=== PATIENT | female | born 1980 | race Hispanic/Latino ===

== ENCOUNTER 2016-05-05 15:54 | Emergency (ER) | payer OTHER ==
[2016-05-05 17:30] VITALS: BP 127/77
--- NOTE | 2016-05-05 17:34 | Emergency Department Report ---
ED ENT HPI - General Chief complaint: Dental/Oral Stated complaint: ABSCESS TOOTH/FACE SWOLLEN/EAR ACHE Time Seen by Provider: 05/05/16 17:25 Source: patient Mode of arrival: Ambulatory Limitations: No Limitations - History of Present Illness Initial comments: PT c/o toothache. PT states a year ago, she had a broken tooth but it never bothered her. PT states she thought the tooth was fine but she chipped it more but eating very hard pork rinds over the weekend. PT states she had pain after she spit out a piece of tooth and the pain has gradually worsened. PT states she tried taking a few left over Amoxils from a year ago but no improvement. PT states she woke up this am with facial swelling and subjective fever. PT states she took OTC motrin for this. MD complaint: tooth pain Onset/Timin -: Gradual, days(s) Location: tooth # (2) 1 - decay Severity: severe Severity scale (0 -10): 10 Quality: stabbing, aching Consistency: constant Worsens with: none Context- Dental: history of dental caries, poor dental care Associated Symptoms: fever, toothache. denies: gum swelling - Related Data Previous Rx's Medication Instructions Recorded Last Taken Type Amoxicillin 500 mg PO BID #20 capsule 05/05/16 Unknown Rx Ibuprofen [Motrin] 600 mg PO Q8H PRN #15 tablet 05/05/16 Unknown Rx traMADol [Ultram] 50 mg PO Q6HR PRN #12 tablet 05/05/16 Unknown Rx Allergies Allergy/AdvReac Type Severity Reaction Status Date / Time No Known Allergies Allergy Unverified 05/05/16 17:28 ED Dental HPI - General Stated complaint: ABSCESS TOOTH/FACE SWOLLEN/EAR ACHE Time Seen by Provider: 05/05/16 17:25 - Related Data Previous Rx's Medication Instructions Recorded Last Taken Type Amoxicillin 500 mg PO BID #20 capsule 05/05/16 Unknown Rx Ibuprofen [Motrin] 600 mg PO Q8H PRN #15 tablet 05/05/16 Unknown Rx traMADol [Ultram] 50 mg PO Q6HR PRN #12 tablet 05/05/16 Unknown Rx Allergies Allergy/AdvReac Type Severity Reaction Status Date / Time No Known Allergies Allergy Unverified 05/05/16 17:28 ED Review of Systems ROS: Stated complaint: ABSCESS TOOTH/FACE SWOLLEN/EAR ACHE Other details as noted in HPI Comment: All other systems reviewed and negative Constitutional: fever ENT: ear pain (R ) Respiratory: no symptoms reported Neurological: headache ED Past Medical Hx - Medications Home Medications: Home Medications Medication Instructions Recorded Confirmed Last Taken Type Amoxicillin 500 mg PO BID #20 capsule 05/05/16 Unknown Rx Ibuprofen [Motrin] 600 mg PO Q8H PRN #15 tablet 05/05/16 Unknown Rx traMADol [Ultram] 50 mg PO Q6HR PRN #12 tablet 05/05/16 Unknown Rx ED Physical Exam - General Limitations: No Limitations General appearance: alert, in no apparent distress - Head Head exam: Present: atraumatic, normocephalic - Eye Eye exam: Present: normal appearance. Absent: conjunctival injection - ENT ENT exam: Present: normal orophraynx, mucous membranes moist, other (R TM WNL ) - Expanded ENT Exam Expanded TM/Canal exam: Cerumen Impaction: Left TM Mouth exam: Absent: muffled voice Teeth exam: Present: dental caries, dental tenderness # (2, no abscess seen, however, tooth is decayed to gum line ) Throat exam: Positive: normal inspection - Neck Neck exam: Present: normal inspection. Absent: tenderness, lymphadenopathy - Respiratory Respiratory exam: Present: normal lung sounds bilaterally. Absent: respiratory distress, wheezes - Cardiovascular Cardiovascular Exam: Present: regular rate, normal rhythm - Extremities Exam Extremities exam: Present: normal inspection, full ROM - Back Exam Back exam: Present: normal inspection, full ROM. Absent: tenderness - Neurological Exam Neurological exam: Present: alert, oriented X3 - Psychiatric Psychiatric exam: Present: normal affect, normal mood - Skin Skin exam: Present: warm, dry, intact, normal color ED Course Vital Signs 05/05/16 17:28 Temperature 98.1 F Pulse Rate 88 Respiratory 17 Rate Blood Pressure 127/77 O2 Sat by Pulse 100 Oximetry - Reevaluation(s) Reevaluation #1: 05/05/16 17:34 PT aware of dx and plan of care. PT aware she must follow up with a Dentist. - Pulse Oximetry Interpretation Digit-Finger Initial Pulse Oximetry Readin Actions Taken: none ED Medical Decision Making - Differential Diagnosis abscess, decay Critical care attestation.: If time is entered above; I have spent that time in minutes in the direct care of this critically ill patient, excluding procedure time. ED Disposition Clinical Impression: Toothache, Dental decay, Otalgia of right ear Disposition: DISCHARGED TO HOME OR SELFCARE Is pt being admited?: No Does the pt Need Aspirin: No Condition: Stable Instructions: Dental Abscess (ED), Dental Caries (ED), Toothache (ED) Additional Instructions: Follow up with a Dentist next week Finish all antibiotics No driving or ETOH after taking Ultram Prescriptions: Amoxicillin 500 mg PO BID #20 capsule Ibuprofen [Motrin] 600 mg PO Q8H PRN #15 tablet PRN Reason: Pain traMADol [Ultram] 50 mg PO Q6HR PRN #12 tablet PRN Reason: Pain Referrals: [facility] [Outside] - 3-5 Days Forms: Work/School Release Form(ED) Time of Disposition: 17:36
== END 2016-05-05 18:10 | disposition home or self-care (01) ==
LOC: ED 15:54
DX: K02.9 Dental caries, unspecified (principal); K08.89 Other specified disorders of teeth and supporting structures; H92.01 Otalgia, right ear
CPT/HCPCS: 99282

== ENCOUNTER 2017-11-28 12:39 | Inpatient (IN) | payer MEDICAID, OTHER ==
[2017-11-28] MEDS ORDERED: DULCOLAX PR PRN (12:48)
[2017-11-28] MEDS ORDERED: ZOFRAN ODT PO PRN (12:48)
[2017-11-28] MEDS ORDERED: MOTRIN PO PRN (12:48)
[2017-11-28] MEDS ORDERED: REQUIP PO PRN (12:48)
[2017-11-28] MEDS ORDERED: ATIVAN IV PRN (12:48)
[2017-11-28] MEDS ORDERED: ROBAXIN PO PRN (12:48)
[2017-11-28] MEDS ORDERED: VISTARIL PO PRN (12:48)
[2017-11-28] MEDS ORDERED: IMODIUM PO PRN (12:48)
[2017-11-28] MEDS ORDERED: BENTYL PO PRN (12:48)
[2017-11-28] MEDS ORDERED: VISTARIL IM PRN (12:48)
[2017-11-28] MEDS ORDERED: ALUM-MAG HYDROX-SIMETH 200-200-20MG/5ML PO PRN (12:48)
[2017-11-28] MEDS ORDERED: SENOKOT PO PRN (12:48)
[2017-11-28] MEDS ORDERED: ZOFRAN IV PRN ×2 (12:48→19:41)
[2017-11-28] MEDS ORDERED: CATAPRES PO PRN (12:48)
[2017-11-28] MEDS ORDERED: TYLENOL PO PRN ×2 (12:48→19:41)
[2017-11-28 13:55] LABS: Hemoglobin 15.2 gm/dl (10.1-14.3); Mean Corpuscular HGB Conc 34 % (30-34); Mean Corpuscular Hemoglobin 32 pg (28-32); Mean Corpuscular Volume 93 fl (79-97); Platelet Count 256 K/mm3 (140-440); Red Blood Count 4.83 M/mm3 (3.65-5.03); Red Cell Distribution Width 12.2 % (13.2-15.2)
[2017-11-28 14:03] LABS: INR 0.95 (0.87-1.13)
[2017-11-28 14:13] LABS: Alanine Aminotransferase 9 units/L (7-56); Albumin 4.1 g/dL (3.9-5); BUN/Creatinine Ratio 23; Blood Urea Nitrogen 14 mg/dL (7-17); Calcium 9.4 mg/dL (8.4-10.2); Hemolysis Index 14
[2017-11-28] MEDS: LIBRIUM PO SCH ×3 (14:36→22:26)
[2017-11-28] MEDS ORDERED: VITAMIN B-1 100 MG, FOLVITE 1 MG, INFUVITE 10 ML in LACTATED RINGERS 1,000 ML IV ONE (15:20)
[2017-11-28] MEDS: SUBOXONE 2 MG-0.5 MG SL SCH ×2 (15:25→22:51)
--- NOTE | 2017-11-28 19:02 | History and Physical Report ---
History of Present Illness Date of examination: 11/28/17 Date of admission: 11/28/17 13:24 Chief complaint: CC: Methadone dependence for 2 years History of present illness: History of present illness 37-year-old white female comes in for help with methadone dependence. Patient was doing crushed oxycodone 30 mg each and Dilaudid 8 mg 2-4 times a day depending on the availability 10 years ago. Patient did oxycodone and Dilaudid for 2 years and was drug free for 8 years. Relapsed about 22 months ago and was on methadone 90 mg once a day. Patient wanted to be off methadone and taper down to 15 mg once a day until 2 weeks ago. Relapsed because she was feeling bad and took oxycodone 30 mg couple of times. The methadone clinic increased her methadone to 30 mg and then 40 mg at which point she wanted help getting off methadone. Hence admission to medical stabilization unit for Suboxone treatment. Patient feels nauseous and anxious and slightly agitated. No fever or chills. No significant past medical history. Past History Past Medical History: No medical history Past Surgical History: Other (inguinal hernia surgery and abdominal wall hernia surgery.) Social history: no significant social history, lives with family, full code, other (surprisingly patient does not smoke or take alcohol) Family history: no significant family history Medications and Allergies Allergies Allergy/AdvReac Type Severity Reaction Status Date / Time No Known Allergies Allergy Unverified 05/05/16 17:28 Home Medications Medication Instructions Recorded Confirmed Last Taken Type Amoxicillin 500 mg PO BID #20 capsule 05/05/16 Unknown Rx Ibuprofen [Motrin] 600 mg PO Q8H PRN #15 tablet 05/05/16 Unknown Rx traMADol [Ultram] 50 mg PO Q6HR PRN #12 tablet 05/05/16 Unknown Rx Active Meds: Active Medications Acetaminophen (Tylenol) 500 mg PO Q4H PRN PRN Reason: Temp > 100.4 Al Hydrox/Mg Hydrox/Simethicone (Alum-Mag Hydrox-Simeth [id number]/5ml) 30 ml PO Q6H PRN PRN Reason: Dyspepsia Bisacodyl (Dulcolax) 10 mg MS QDAY PRN PRN Reason: Bowel Movement Buprenorphine HCl (Suboxone 2 Mg-0.5 Mg) 2 each SL Q8HR [facility] Stop: 11/29/17 06:01 Last Admin: 11/28/17 15:25 Dose: 2 each Buprenorphine HCl (Suboxone 2 Mg-0.5 Mg) 1 each SL Q8HR [facility] Stop: 11/29/17 22:01 Buprenorphine HCl (Suboxone 2 Mg-0.5 Mg) 1 each SL Q12HR [facility] Stop: 11/30/17 22:01 Chlordiazepoxide HCl (Librium) 25 mg PO Q6H PRN PRN Reason: Moderate/Severe Anxiety Chlordiazepoxide HCl (Librium) 25 mg PO Q4HR [facility] Stop: 11/29/17 10:01 Last Admin: 11/28/17 17:26 Dose: 25 mg Clonidine HCl (Catapres) 0.1 mg PO Q2H PRN PRN Reason: Hot/Cold Sweats or Anxiety Dicyclomine HCl (Bentyl) 20 mg PO Q6H PRN PRN Reason: Abdominal Discomfort Folic Acid (Folvite) 1 mg PO QDAY [facility] Hydroxyzine HCl (Vistaril) 50 mg IM Q6H PRN PRN Reason: Breakthrough Anxiety Hydroxyzine Pamoate (Vistaril) 50 mg PO Q6H PRN PRN Reason: Anxiety Mild Sodium Chloride (Nacl 0.9% 1000 Ml) 1,000 mls @ 75 mls/hr IV DIRECT [facility] Thiamine HCl 100 mg/ Folic Acid 1 mg/ Multivitamins/Minerals 10 ml/ Lactated Ringer's 1,011.2 mls @ 150 mls/hr IV ONCE ONE Stop: 11/28/17 22:04 Last Admin: 11/28/17 15:37 Dose: 150 mls/hr Ibuprofen (Motrin) 600 mg PO Q8H PRN PRN Reason: Pain, Mild (1-3) Loperamide HCl (Imodium) 2 mg PO Q8H PRN PRN Reason: Diarrhea Lorazepam (Ativan) 2 mg IV PRN PRN PRN Reason: Seizures Methocarbamol (Robaxin) 750 mg PO Q6H PRN PRN Reason: Muscle aches Multivitamins (Theragran Tab) 1 each PO QDAY [facility] Ondansetron HCl (Zofran) 4 mg IV Q6H PRN PRN Reason: Moderat/Severe Nausea/Vomiting Ondansetron HCl (Zofran Odt) 4 mg PO Q6H PRN PRN Reason: Mild / Nausea And Vomiting Ropinirole HCl (Requip) 0.5 mg PO Q12H PRN PRN Reason: Restless legs Senna (Senokot) 17.2 mg PO QHS PRN PRN Reason: Constipation Thiamine HCl (Vitamin B-1) 100 mg PO QDAY [facility] Trazodone HCl (Desyrel) 50 mg PO QHS [facility] Review of Systems All systems: negative Constitutional: anorexia, fatigue, malaise, chronic headaches, poor appetite, no weight loss, no weight gain, no fever, no chills, no night sweats Ears, nose, mouth and throat: no bleeding gums, no dental pain, no mouth pain, no dysphagia, no hoarseness, no sore throat Breasts: deferred Cardiovascular: palpitations, no chest pain, no orthopnea, no rapid/irregular heart beat, no edema, no syncope, no lightheadedness, no shortness of breath Respiratory: no cough, no cough with sputum, no excessive sputum, no hemoptysis , no shortness of breath, no dyspnea on exertion Gastrointestinal: nausea, no abdominal pain, no vomiting, no diarrhea, no constipation, no change in bowel habits, no hematemesis, no coffee ground emesis Genitourinary Female: no menorrhagia, no dysuria, no urinary frequency, no urgency Menstruation: currently menstrual Rectal: no pain Musculoskeletal: no neck stiffness, no neck pain, no shooting arm pain, no arm numbness/tingling, no low back pain, no shooting leg pain, no leg numbness/ tingling, no redness of joints Integumentary: no rash, no pruritis, no redness, no sores, no wounds, no jaundice, no boils, no blisters Neurological: no seizures, no syncope Psychiatric: anxiety, insomnia, change in appetite, depression, anxiety attacks , no memory loss, no change in sleep habits, no sleep disturbances, no suicidal ideation, no disorientation, no hallucinations Endocrine: no cold intolerance, no heat intolerance, no polyphagia, no excessive thirst, no polydipsia, no polyuria, no nocturia, no excessive sweating , no flushing, no weight change Hematologic/Lymphatic: no easy bruising, no easy bleeding Allergic/Immunologic: no urticaria, no allergic rhinitis, no wheezing Exam - Constitutional Vitals: Temp Pulse Resp BP Pulse Ox 98.2 F 64 18 111/81 98 11/28/17 15:29 11/28/17 15:29 11/28/17 15:29 11/28/17 15:29 11/28/17 15:29 General appearance: Present: no acute distress, well-nourished - EENT Eyes: Present: PERRL ENT: hearing intact, clear oral mucosa - Neck Neck: Present: supple, normal ROM - Respiratory Respiratory effort: normal Respiratory: bilateral: CTA - Cardiovascular Heart rate: 76 Rhythm: regular Heart Sounds: Present: S1 & S2. Absent: rub, click - Extremities Extremities: no ischemia, pulses intact, pulses symmetrical, No edema Peripheral Pulses: within normal limits - Abdominal General gastrointestinal: Present: soft, non-tender, non-distended, normal bowel sounds Female genitourinary: Present: normal - Rectal Rectal Exam: deferred - Integumentary Integumentary: Present: clear, warm, dry - Musculoskeletal Musculoskeletal: gait normal, strength equal bilaterally - Psychiatric Psychiatric: appropriate mood/affect, intact judgment & insight - Neurologic Neurologic: CNII-XII intact, moves all extremities - Allied Health Allied health notes reviewed: nursing, case management Results - Labs CBC & Chem 7: 11/28/17 13:33 11/28/17 13:33 Labs: Laboratory Last Values WBC 9.3 K/mm3 (4.5-11.0) 11/28/17 13:33 RBC 4.83 M/mm3 (3.65-5.03) 11/28/17 13:33 Hgb 15.2 gm/dl (10.1-14.3) H 11/28/17 13:33 Hct 45.0 % (30.3-42.9) H 11/28/17 13:33 MCV 93 fl (79-97) 11/28/17 13:33 MCH 32 pg (28-32) 11/28/17 13:33 MCHC 34 % (30-34) 11/28/17 13:33 RDW 12.2 % (13.2-15.2) L 11/28/17 13:33 Plt Count 256 K/mm3 (140-440) 11/28/17 13:33 PT 13.2 Sec. (12.2-14.9) 11/28/17 13:33 INR 0.95 (0.87-1.13) 11/28/17 13:33 Sodium 139 mmol/L (137-145) 11/28/17 13:33 Potassium 4.2 mmol/L (3.6-5.0) 11/28/17 13:33 Chloride 100.4 mmol/L (98-107) 11/28/17 13:33 Carbon Dioxide 27 mmol/L (22-30) 11/28/17 13:33 Anion Gap 16 mmol/L 11/28/17 13:33 BUN 14 mg/dL (7-17) 11/28/17 13:33 Creatinine 0.6 mg/dL (0.7-1.2) L 11/28/17 13:33 Estimated GFR > 60 ml/min 11/28/17 13:33 BUN/Creatinine Ratio 23 % 11/28/17 13:33 Glucose 88 mg/dL (65-100) 11/28/17 13:33 Calcium 9.4 mg/dL (8.4-10.2) 11/28/17 13:33 Total Bilirubin 0.60 mg/dL (0.1-1.2) 11/28/17 13:33 AST 16 units/L (5-40) 11/28/17 13:33 ALT 9 units/L (7-56) 11/28/17 13:33 Alkaline Phosphatase 69 units/L (35-129) 11/28/17 13:33 Total Protein 6.5 g/dL (6.3-8.2) 11/28/17 13:33 Albumin 4.1 g/dL (3.9-5) 11/28/17 13:33 Albumin/Globulin Ratio 1.7 % 11/28/17 13:33 Amylase 32 units/L (27-131) 11/28/17 13:33 Lipase 12 units/L (13-60) L 11/28/17 13:33 HCG, Qual Negative (Negative) 11/28/17 13:33 Plasma/Serum Alcohol < 0.01 % (0-0.07) 11/28/17 13:33 Assessment and Plan Advance Directives: Yes (full code) VTE prophylaxis?: Chemical Plan of care discussed with patient/family: Yes
[2017-11-28] MEDS ORDERED: FIORICET PO PRN (19:37)
[2017-11-28] MEDS ORDERED: SODIUM CHLORIDE FLUSH SYRINGE 10 ML IV PRN (19:41)
[2017-11-28] MEDS ORDERED: REGLAN IV PRN (19:41)
[2017-11-28 21:42] LABS: Amorphous Crystals,Urine 1+; Bacteria,Urine 1+ /HPF (Negative); Bilirubin,Urine NEG (Negative); Blood,Urine NEG (Negative); Color,Urine Amber (Yellow); Mucus,Urine FEW /HPF
[2017-11-28 22:01] LABS: Amphetamine Screen,Urine PRESUMPTIVE NEGATIVE; Cocaine Screen,Urine PRESUMPTIVE NEGATIVE; Methadone Screen,Urine PRESUMPTIVE NEGATIVE; Opiate Screen,Urine PRESUMPTIVE NEGATIVE
[2017-11-28 22:19] LABS: Benzodiazepines Screen,Urine PRESUMPTIVE POSITIVE; Cannabinoid Screen,Urine PRESUMPTIVE POSITIVE
[2017-11-28] MEDS: PEPCID PO SCH (22:26)
[2017-11-28] MEDS: DESYREL PO SCH (22:26)
[2017-11-28] MEDS: NACL 0.9% 1000 ML 1,000 ML IV SCH (22:29)
[2017-11-29 05:44] LABS: Basophils % (Auto) 0.3 % (0.0-1.8); Eosinophils # (Auto) 0.1 K/mm3 (0.0-0.4); Hematocrit 39.7 % (30.3-42.9); Hemoglobin 13.4 gm/dl (10.1-14.3); Lymphocytes % (Auto) 42.4 % (13.4-35.0); Mean Corpuscular HGB Conc 34 % (30-34); Mean Corpuscular Hemoglobin 32 pg (28-32); Mean Corpuscular Volume 93 fl (79-97); Monocytes # (Auto) 0.4 K/mm3 (0.0-0.8); Monocytes % (Auto) 6.1 % (0.0-7.3); Platelet Count 209 K/mm3 (140-440); Red Blood Count 4.25 M/mm3 (3.65-5.03); Red Cell Distribution Width 12.1 % (13.2-15.2)
[2017-11-29 08:10] LABS: Alanine Aminotransferase 7 units/L (7-56); Albumin 3.6 g/dL (3.9-5); BUN/Creatinine Ratio 22; Blood Urea Nitrogen 11 mg/dL (7-17); Calcium 8.2 mg/dL (8.4-10.2); Hemolysis Index 8
[2017-11-29] MEDS: VITAMIN B-1 PO SCH (09:21)
[2017-11-29] MEDS: PEPCID PO SCH ×2 (09:21→22:16)
[2017-11-29] MEDS: FOLVITE PO SCH (09:21)
[2017-11-29] MEDS: THERAGRAN Tab PO SCH (09:21)
[2017-11-29] MEDS: LIBRIUM PO SCH ×2 (09:22→20:39)
[2017-11-29] MEDS: SODIUM CHLORIDE FLUSH SYRINGE 10 ML IV SCH ×3 (09:22→22:17)
[2017-11-29] MEDS ORDERED: LIBRIUM PO PRN (12:58)
[2017-11-29] MEDS: SUBOXONE 2 MG-0.5 MG SL SCH ×4 (13:41→22:16)
--- NOTE | 2017-11-29 16:08 | Progress Note ---
Assessment and Plan Assessment and plan: Patient is a 37 yo woman with a history of Methadone Dependence. Patient was doing crushed oxycodone 30 mg each and Dilaudid 8 mg 2-4 times a day depending on the availability 10 years ago. Patient did oxycodone and Dilaudid for 2 years and was drug free for 8 years. Relapsed about 22 months ago and was on methadone 90 mg once a day. Patient wanted to be off methadone and taper down to 15 mg once a day until 2 weeks ago. Relapsed because she was feeling bad and took oxycodone 30 mg couple of times. The methadone clinic increased her methadone to 30 mg and then 40 mg at which point she wanted help getting off methadone. Hence admission to medical stabilization unit for Suboxone treatment. Patient feels nauseous and anxious and slightly agitated. No fever or chills. No significant past medical history. Methadone dependence and withdrawal Patient initiated on Suboxone taper option 1. Patient to be given Suboxone 4 mg /1 mg every 8 hours for 3 doses then 2 mg/0.5 mg every 8 hours for 3 doses and on the third day 2 mg/0.5 mg sublingual every 12 hours for 2 doses. IV fluids including banana bag, Patient also to be given Librium methocarbamol dicyclomine ropinirole hydroxyzine. History Interval history: Patient was seen and examined. Follow-up on current diagnosis of Methadone stabilization. Overnight uneventful. Patient denies any chest pain, shortness breath, nausea/vomiting or severe headaches. Imaging, nursing note, chart, labs and old chart reviewed. Discussed with patient Hospitalist Physical - Physical exam Narrative exam: GEN: WDWN, NAD, Awake, Alert, Orientated x 3 HEENT: NCAT, EOMI, PERRL, OP Clear NECK: supple, no adenopathy, no thyromegaly, no JVD CVS/HEART: RRR, normal S1S2, pulses present bilaterally CHEST/LUNGS: CTA B, Symmetrical chest expansion, good air entry bilaterally GI/Abdomen: soft, NTND, good bowel sounds, no guarding or rebound /Bladder: no suprapubic tenderness, no CVA or paraspinal tenderness EXT/Skin: no c/c/e, no obvious rash MSK: FROM x 4 Neuro: CN 2-12 grossly intact, no new focal deficits Psych: calm - Constitutional Vitals: Temp Pulse Resp BP Pulse Ox 97.7 F 63 18 96/62 97 11/29/17 12:22 11/29/17 12:22 11/29/17 12:22 11/29/17 12:22 11/29/17 12:22 General appearance: Present: no acute distress, well-nourished Results - Labs CBC & Chem 7: 11/29/17 04:55 11/29/17 04:55 Labs: Laboratory Last Values WBC 7.0 K/mm3 (4.5-11.0) 11/29/17 04:55 RBC 4.25 M/mm3 (3.65-5.03) 11/29/17 04:55 Hgb 13.4 gm/dl (10.1-14.3) 11/29/17 04:55 Hct 39.7 % (30.3-42.9) 11/29/17 04:55 MCV 93 fl (79-97) 11/29/17 04:55 MCH 32 pg (28-32) 11/29/17 04:55 MCHC 34 % (30-34) 11/29/17 04:55 RDW 12.1 % (13.2-15.2) L 11/29/17 04:55 Plt Count 209 K/mm3 (140-440) 11/29/17 04:55 Lymph % (Auto) 42.4 % (13.4-35.0) H 11/29/17 04:55 Butts % (Auto) 6.1 % (0.0-7.3) 11/29/17 04:55 Eos % (Auto) 2.0 % (0.0-4.3) 11/29/17 04:55 Baso % (Auto) 0.3 % (0.0-1.8) 11/29/17 04:55 Lymph # 3.0 K/mm3 (1.2-5.4) 11/29/17 04:55 Butts # 0.4 K/mm3 (0.0-0.8) 11/29/17 04:55 Eos # 0.1 K/mm3 (0.0-0.4) 11/29/17 04:55 Baso # 0.0 K/mm3 (0.0-0.1) 11/29/17 04:55 Seg Neutrophils % 49.2 % (40.0-70.0) 11/29/17 04:55 Seg Neutrophils # 3.5 K/mm3 (1.8-7.7) 11/29/17 04:55 PT 13.2 Sec. (12.2-14.9) 11/28/17 13:33 INR 0.95 (0.87-1.13) 11/28/17 13:33 Sodium 140 mmol/L (137-145) 11/29/17 04:55 Potassium 3.8 mmol/L (3.6-5.0) 11/29/17 04:55 Chloride 104.9 mmol/L (98-107) 11/29/17 04:55 Carbon Dioxide 23 mmol/L (22-30) 11/29/17 04:55 Anion Gap 16 mmol/L 11/29/17 04:55 BUN 11 mg/dL (7-17) 11/29/17 04:55 Creatinine 0.5 mg/dL (0.7-1.2) L 11/29/17 04:55 Estimated GFR > 60 ml/min 11/29/17 04:55 BUN/Creatinine Ratio 22 % 11/29/17 04:55 Glucose 90 mg/dL (65-100) 11/29/17 04:55 Calcium 8.2 mg/dL (8.4-10.2) L 11/29/17 04:55 Total Bilirubin 0.50 mg/dL (0.1-1.2) 11/29/17 04:55 AST 12 units/L (5-40) 11/29/17 04:55 ALT 7 units/L (7-56) 11/29/17 04:55 Alkaline Phosphatase 57 units/L (35-129) 11/29/17 04:55 Total Protein 5.1 g/dL (6.3-8.2) L D 11/29/17 04:55 Albumin 3.6 g/dL (3.9-5) L 11/29/17 04:55 Albumin/Globulin Ratio 2.4 % 11/29/17 04:55 Amylase 32 units/L (27-131) 11/28/17 13:33 Lipase 12 units/L (13-60) L 11/28/17 13:33 HCG, Qual Negative (Negative) 11/28/17 13:33 Urine Color Breonna (Yellow) 11/28/17 21:03 Urine Turbidity Cloudy (Clear) 11/28/17 21:03 Urine pH 8.0 (5.0-7.0) H 11/28/17 21:03 Ur Specific [place] 1.016 (1.003-1.030) 11/28/17 21:03 Urine Protein 30 mg/dl mg/dL (Negative) 11/28/17 21:03 Urine Glucose (UA) Neg mg/dL (Negative) 11/28/17 21:03 Urine Ketones 20 mg/dL (Negative) 11/28/17 21:03 Urine Blood Neg (Negative) 11/28/17 21:03 Urine Nitrite Neg (Negative) 11/28/17 21:03 Urine Bilirubin Neg (Negative) 11/28/17 21:03 Urine Urobilinogen 2.0 mg/dL (<2.0) 11/28/17 21:03 Ur Leukocyte Esterase Tr (Negative) 11/28/17 21:03 Urine WBC (Auto) 8.0 /HPF (0.0-6.0) H 11/28/17 21:03 Urine RBC (Auto) 1.0 /HPF (0.0-6.0) 11/28/17 21:03 U Epithel Cells (Auto) 6.0 /HPF (0-13.0) 11/28/17 21:03 Urine Bacteria (Auto) 1+ /HPF (Negative) 11/28/17 21:03 Amorphous Crystals 1+ 11/28/17 21:03 Urine Mucus Few /HPF 11/28/17 21:03 Urine Opiates Screen Presumptive negative 11/28/17 21:03 Urine Methadone Screen Presumptive negative 11/28/17 21:03 Ur Barbiturates Screen Presumptive negative 11/28/17 21:03 Ur Phencyclidine Scrn Presumptive negative 11/28/17 21:03 Ur Amphetamines Screen Presumptive negative 11/28/17 21:03 U Benzodiazepines Scrn Presumptive positive 11/28/17 21:03 Urine Cocaine Screen Presumptive negative 11/28/17 21:03 U Marijuana (THC) Screen Presumptive positive 11/28/17 21:03 Drugs of Abuse Note Disclamer 11/28/17 21:03 Plasma/Serum Alcohol < 0.01 % (0-0.07) 11/28/17 13:33
[2017-11-29] MEDS: NACL 0.9% 1000 ML 1,000 ML IV SCH (17:55)
[2017-11-29 19:03] LABS: Amphetamine Screen,Urine PRESUMPTIVE NEGATIVE; Cocaine Screen,Urine PRESUMPTIVE NEGATIVE; Opiate Screen,Urine PRESUMPTIVE NEGATIVE
[2017-11-29 19:19] LABS: Benzodiazepines Screen,Urine PRESUMPTIVE POSITIVE; Cannabinoid Screen,Urine PRESUMPTIVE POSITIVE; Methadone Screen,Urine PRESUMPTIVE POSITIVE
[2017-11-29] MEDS: DESYREL PO SCH (22:16)
[2017-11-30] MEDS: FOLVITE PO SCH (09:51)
[2017-11-30] MEDS: PEPCID PO SCH ×2 (09:51→21:43)
[2017-11-30] MEDS: THERAGRAN Tab PO SCH (09:51)
[2017-11-30] MEDS: VITAMIN B-1 PO SCH (09:51)
[2017-11-30] MEDS: SODIUM CHLORIDE FLUSH SYRINGE 10 ML IV SCH ×2 (09:52→21:43)
--- NOTE | 2017-11-30 14:13 | Progress Note ---
Assessment and Plan Assessment and plan: Patient is a 37 yo woman with a history of Methadone Dependence. Patient was doing crushed oxycodone 30 mg each and Dilaudid 8 mg 2-4 times a day depending on the availability 10 years ago. Patient did oxycodone and Dilaudid for 2 years and was drug free for 8 years. Relapsed about 22 months ago and was on methadone 90 mg once a day. Patient wanted to be off methadone and taper down to 15 mg once a day until 2 weeks ago. Relapsed because she was feeling bad and took oxycodone 30 mg couple of times. The methadone clinic increased her methadone to 30 mg and then 40 mg at which point she wanted help getting off methadone. Hence admission to medical stabilization unit for Suboxone treatment. Patient feels nauseous and anxious and slightly agitated. No fever or chills. No significant past medical history. Methadone dependence and withdrawal Patient initiated on Suboxone taper option 1. Patient to be given Suboxone 4 mg /1 mg every 8 hours for 3 doses then 2 mg/0.5 mg every 8 hours for 3 doses and on the third day 2 mg/0.5 mg sublingual every 12 hours for 2 doses. IV fluids including banana bag, Patient also to be given Librium methocarbamol dicyclomine ropinirole hydroxyzine. History Interval history: Patient was seen and examined. Follow-up on current diagnosis of Methadone stabilization. Overnight uneventful. Patient denies any chest pain, shortness breath, nausea/vomiting or severe headaches. Imaging, nursing note, chart, labs and old chart reviewed. Discussed with patient Hospitalist Physical - Physical exam Narrative exam: GEN: WDWN, NAD, Awake, Alert, Orientated x 3 HEENT: NCAT, EOMI, PERRL, OP Clear NECK: supple, no adenopathy, no thyromegaly, no JVD CVS/HEART: RRR, normal S1S2, pulses present bilaterally CHEST/LUNGS: CTA B, Symmetrical chest expansion, good air entry bilaterally GI/Abdomen: soft, NTND, good bowel sounds, no guarding or rebound /Bladder: no suprapubic tenderness, no CVA or paraspinal tenderness EXT/Skin: no c/c/e, no obvious rash MSK: FROM x 4 Neuro: CN 2-12 grossly intact, no new focal deficits Psych: calm - Constitutional Vitals: Temp Pulse Resp BP Pulse Ox 98.3 F 75 18 95/55 94 11/30/17 08:13 11/30/17 08:13 11/30/17 08:13 11/30/17 08:13 11/30/17 08:13 General appearance: Present: no acute distress, well-nourished Results - Labs CBC & Chem 7: 11/29/17 04:55 11/29/17 04:55 Labs: Laboratory Last Values WBC 7.0 K/mm3 (4.5-11.0) 11/29/17 04:55 RBC 4.25 M/mm3 (3.65-5.03) 11/29/17 04:55 Hgb 13.4 gm/dl (10.1-14.3) 11/29/17 04:55 Hct 39.7 % (30.3-42.9) 11/29/17 04:55 MCV 93 fl (79-97) 11/29/17 04:55 MCH 32 pg (28-32) 11/29/17 04:55 MCHC 34 % (30-34) 11/29/17 04:55 RDW 12.1 % (13.2-15.2) L 11/29/17 04:55 Plt Count 209 K/mm3 (140-440) 11/29/17 04:55 Lymph % (Auto) 42.4 % (13.4-35.0) H 11/29/17 04:55 [place] % (Auto) 6.1 % (0.0-7.3) 11/29/17 04:55 Eos % (Auto) 2.0 % (0.0-4.3) 11/29/17 04:55 Baso % (Auto) 0.3 % (0.0-1.8) 11/29/17 04:55 Lymph # 3.0 K/mm3 (1.2-5.4) 11/29/17 04:55 [place] # 0.4 K/mm3 (0.0-0.8) 11/29/17 04:55 Eos # 0.1 K/mm3 (0.0-0.4) 11/29/17 04:55 Baso # 0.0 K/mm3 (0.0-0.1) 11/29/17 04:55 Seg Neutrophils % 49.2 % (40.0-70.0) 11/29/17 04:55 Seg Neutrophils # 3.5 K/mm3 (1.8-7.7) 11/29/17 04:55 PT 13.2 Sec. (12.2-14.9) 11/28/17 13:33 INR 0.95 (0.87-1.13) 11/28/17 13:33 Sodium 140 mmol/L (137-145) 11/29/17 04:55 Potassium 3.8 mmol/L (3.6-5.0) 11/29/17 04:55 Chloride 104.9 mmol/L (98-107) 11/29/17 04:55 Carbon Dioxide 23 mmol/L (22-30) 11/29/17 04:55 Anion Gap 16 mmol/L 11/29/17 04:55 BUN 11 mg/dL (7-17) 11/29/17 04:55 Creatinine 0.5 mg/dL (0.7-1.2) L 11/29/17 04:55 Estimated GFR > 60 ml/min 11/29/17 04:55 BUN/Creatinine Ratio 22 % 11/29/17 04:55 Glucose 90 mg/dL (65-100) 11/29/17 04:55 Calcium 8.2 mg/dL (8.4-10.2) L 11/29/17 04:55 Total Bilirubin 0.50 mg/dL (0.1-1.2) 11/29/17 04:55 AST 12 units/L (5-40) 11/29/17 04:55 ALT 7 units/L (7-56) 11/29/17 04:55 Alkaline Phosphatase 57 units/L (35-129) 11/29/17 04:55 Total Protein 5.1 g/dL (6.3-8.2) L D 11/29/17 04:55 Albumin 3.6 g/dL (3.9-5) L 11/29/17 04:55 Albumin/Globulin Ratio 2.4 % 11/29/17 04:55 Amylase 32 units/L (27-131) 11/28/17 13:33 Lipase 12 units/L (13-60) L 11/28/17 13:33 HCG, Qual Negative (Negative) 11/28/17 13:33 Urine Color [place] (Yellow) 11/28/17 21:03 Urine Turbidity Cloudy (Clear) 11/28/17 21:03 Urine pH 8.0 (5.0-7.0) H 11/28/17 21:03 Ur Specific [place] 1.016 (1.003-1.030) 11/28/17 21:03 Urine Protein 30 mg/dl mg/dL (Negative) 11/28/17 21:03 Urine Glucose (UA) Neg mg/dL (Negative) 11/28/17 21:03 Urine Ketones 20 mg/dL (Negative) 11/28/17 21:03 Urine Blood Neg (Negative) 11/28/17 21:03 Urine Nitrite Neg (Negative) 11/28/17 21:03 Urine Bilirubin Neg (Negative) 11/28/17 21:03 Urine Urobilinogen 2.0 mg/dL (<2.0) 11/28/17 21:03 Ur Leukocyte Esterase Tr (Negative) 11/28/17 21:03 Urine WBC (Auto) 8.0 /HPF (0.0-6.0) H 11/28/17 21:03 Urine RBC (Auto) 1.0 /HPF (0.0-6.0) 11/28/17 21:03 U Epithel Cells (Auto) 6.0 /HPF (0-13.0) 11/28/17 21:03 Urine Bacteria (Auto) 1+ /HPF (Negative) 11/28/17 21:03 Amorphous Crystals 1+ 11/28/17 21:03 Urine Mucus Few /HPF 11/28/17 21:03 Urine Opiates Screen Presumptive negative 11/28/17 Unknown Urine Methadone Screen Presumptive positive 11/28/17 Unknown Ur Barbiturates Screen Presumptive negative 11/28/17 Unknown Ur Phencyclidine Scrn Presumptive negative 11/28/17 Unknown Ur Amphetamines Screen Presumptive negative 11/28/17 Unknown U Benzodiazepines Scrn Presumptive positive 11/28/17 Unknown Urine Cocaine Screen Presumptive negative 11/28/17 Unknown U Marijuana (THC) Screen Presumptive positive 11/28/17 Unknown Drugs of Abuse Note Disclamer 11/28/17 Unknown Plasma/Serum Alcohol < 0.01 % (0-0.07) 11/28/17 13:33
[2017-11-30] MEDS: SUBOXONE 2 MG-0.5 MG SL SCH ×2 (16:27→21:46)
[2017-11-30] MEDS: NACL 0.9% 1000 ML 1,000 ML IV SCH (21:41)
[2017-11-30] MEDS: DESYREL PO SCH (21:43)
[2017-12-01] MEDS: FOLVITE PO SCH (10:17)
[2017-12-01] MEDS: SODIUM CHLORIDE FLUSH SYRINGE 10 ML IV SCH (10:17)
[2017-12-01] MEDS: VITAMIN B-1 PO SCH (10:17)
[2017-12-01] MEDS: PEPCID PO SCH (10:18)
[2017-12-01] MEDS: THERAGRAN Tab PO SCH (10:18)
--- NOTE | 2017-12-01 11:33 | Discharge Summary ---
Providers - Providers Date of Admission: 11/28/17 13:24 Date of discharge: 12/01/17 Attending physician: ELROY MCMANUS Primary care physician: [employer] Hospitalization Condition: Stable Hospital course: Patient is a 37 yo woman with a history of Methadone Dependence. Patient was doing crushed oxycodone 30 mg each and Dilaudid 8 mg 2-4 times a day depending on the availability 10 years ago. Patient did oxycodone and Dilaudid for 2 years and was drug free for 8 years. Relapsed about 22 months ago and was on methadone 90 mg once a day. Patient wanted to be off methadone and taper down to 15 mg once a day until 2 weeks ago. Relapsed because she was feeling bad and took oxycodone 30 mg couple of times. The methadone clinic increased her methadone to 30 mg and then 40 mg at which point she wanted help getting off methadone. Hence admission to medical stabilization unit for Suboxone treatment. Patient feels nauseous and anxious and slightly agitated. No fever or chills. No significant past medical history. Methadone dependence and withdrawal Patient initiated on Suboxone taper option 1. Patient to be given Suboxone 4 mg /1 mg every 8 hours for 3 doses then 2 mg/0.5 mg every 8 hours for 3 doses and on the third day 2 mg/0.5 mg sublingual every 12 hours for 2 doses. IV fluids including banana bag, Patient also to be given Librium methocarbamol dicyclomine ropinirole hydroxyzine. Disposition: DC-01 TO HOME OR SELFCARE Time spent for discharge: 32 min Core Measure Documentation - Palliative Care Palliative Care/ Comfort Measures: Not Applicable - Core Measures Any of the following diagnoses?: none - VTE Discharge Requirements Deep Vein Thrombosis/Pulmonary Embolism Present on Admission: No Has pt received <5 days of overlap therapy or INR<2.0: No Anticoagulant overlap therapy prescribed at discharge: No Contraindication No Overlap Therapy order at DC: Not Indicated Exam - Physical Exam Narrative exam: GEN: WDWN, NAD, Awake, Alert, Orientated x 3 HEENT: NCAT, EOMI, PERRL, OP Clear NECK: supple, no adenopathy, no thyromegaly, no JVD CVS/HEART: RRR, normal S1S2, pulses present bilaterally CHEST/LUNGS: CTA B, Symmetrical chest expansion, good air entry bilaterally GI/Abdomen: soft, NTND, good bowel sounds, no guarding or rebound /Bladder: no suprapubic tenderness, no CVA or paraspinal tenderness EXT/Skin: no c/c/e, no obvious rash MSK: FROM x 4 Neuro: CN 2-12 grossly intact, no new focal deficits Psych: calm - Constitutional Vitals: Temp Pulse Resp BP Pulse Ox 98.0 F 61 18 113/69 96 12/01/17 07:58 11/30/17 23:39 12/01/17 07:58 12/01/17 07:58 11/30/17 23:39 Plan Activity: other (no strenous activity unless cleared by pcp) Diet: regular Follow up with: PRIMARY CARE, [Primary Care Provider] - 7 Days Prescriptions: traZODone [Desyrel] 50 mg PO QHS #30 tablet
[2017-12-01 12:27] VITALS: BP 111/70
== END 2017-12-01 12:45 | disposition home or self-care (01) | DRG 897 ==
LOC: 2B-ACE 12:39 → UNDOADMIN 12:39 → MSU 13:24
PROVIDERS: ADMIT Internal Medicine; ATTEND Internal Medicine
DX: F11.23 Opioid dependence with withdrawal (principal); Z79.899 Other long term (current) drug therapy
CPT/HCPCS: 36415; 80053; 80307; 80320; 81001; 82150; 83690; 84703; 85025; 85027; 85610; G0480; J3410; J3411; J7030; J7120

== ENCOUNTER 2018-07-10 09:13 | Emergency (ER) | payer MEDICAID, OTHER ==
[2018-07-10 09:41] VITALS: BP 152/99
--- NOTE | 2018-07-10 11:40 | Emergency Department Report ---
- General Chief complaint: Skin/Abscess/Foreign Body Stated complaint: SPIDER BITE ON INNER R THIGH/SWELLING Time Seen by Provider: 07/10/18 11:21 Source: patient Mode of arrival: Ambulatory Limitations: No Limitations - History of Present Illness MD complaint: rash -: Gradual Tetanus Up to Date: yes Location: RLE Quality: burning, stabbing, dull Consistency: constant Improves with: none Context: none Associated symptoms: myalgias Treatments Prior to Arrival: none, NSAID - Related Data Previous Rx's Medication Instructions Recorded Last Taken Type Multivitamin Tab [Multiple Vitamin 1 each PO QDAY #30 tablet 12/01/17 Unknown Rx TAB (Theragran)] traZODone [Desyrel] 50 mg PO QHS #30 tablet 12/01/17 Unknown Rx Ketorolac [Toradol] 10 mg PO Q6H PRN #15 tablet 07/10/18 Unknown Rx Sulfamethoxazole/Trimethoprim 1 each PO BID #20 tablet 07/10/18 Unknown Rx [Bactrim DS TAB] cephALEXin [Keflex] 500 mg PO Q6HR #40 capsule 07/10/18 Unknown Rx Allergies Allergy/AdvReac Type Severity Reaction Status Date / Time No Known Allergies Allergy Verified 07/10/18 09:29 Abscess Boil HPI - HPI Chief Complaint: Skin/Abscess/Foreign Body Stated Complaint: SPIDER BITE ON INNER R THIGH/SWELLING Time Seen by Provider: 07/10/18 11:21 Home Medications: Previous Rx's Medication Instructions Recorded Last Taken Type Multivitamin Tab [Multiple Vitamin 1 each PO QDAY #30 tablet 12/01/17 Unknown Rx TAB (Theragran)] traZODone [Desyrel] 50 mg PO QHS #30 tablet 12/01/17 Unknown Rx Ketorolac [Toradol] 10 mg PO Q6H PRN #15 tablet 07/10/18 Unknown Rx Sulfamethoxazole/Trimethoprim 1 each PO BID #20 tablet 07/10/18 Unknown Rx [Bactrim DS TAB] cephALEXin [Keflex] 500 mg PO Q6HR #40 capsule 07/10/18 Unknown Rx Allergies/Adverse Reactions: Allergies Allergy/AdvReac Type Severity Reaction Status Date / Time No Known Allergies Allergy Verified 07/10/18 09:29 ED Review of Systems ROS: Stated complaint: SPIDER BITE ON INNER R THIGH/SWELLING Other details as noted in HPI Constitutional: denies: chills, fever Eyes: denies: eye pain, eye discharge, vision change ENT: denies: ear pain, throat pain Respiratory: denies: cough, shortness of breath, wheezing Cardiovascular: denies: chest pain, palpitations Endocrine: no symptoms reported Gastrointestinal: denies: abdominal pain, nausea, diarrhea Genitourinary: denies: urgency, dysuria, discharge Musculoskeletal: denies: back pain, joint swelling, arthralgia Skin: change in color. denies: rash, lesions Neurological: denies: headache, weakness, paresthesias Psychiatric: denies: anxiety, depression Hematological/Lymphatic: denies: easy bleeding, easy bruising ED Past Medical Hx - Past Medical History Previous Medical History?: No Hx Congestive Heart Failure: No Hx Diabetes: No Hx Asthma: No Hx COPD: No Hx HIV: No - Surgical History Additional Surgical History: hernia repair x 2 - Social History Smoking Status: Never Smoker Substance Use Type: None - Medications Home Medications: Home Medications Medication Instructions Recorded Confirmed Last Taken Type Multivitamin Tab [Multiple Vitamin 1 each PO QDAY #30 tablet 12/01/17 Unknown Rx TAB (Theragran)] traZODone [Desyrel] 50 mg PO QHS #30 tablet 12/01/17 Unknown Rx Ketorolac [Toradol] 10 mg PO Q6H PRN #15 tablet 07/10/18 Unknown Rx Sulfamethoxazole/Trimethoprim 1 each PO BID #20 tablet 07/10/18 Unknown Rx [Bactrim DS TAB] cephALEXin [Keflex] 500 mg PO Q6HR #40 capsule 07/10/18 Unknown Rx ED Physical Exam - General Limitations: No Limitations General appearance: alert, in no apparent distress - Head Head exam: Present: atraumatic, normocephalic - Eye Eye exam: Present: normal appearance, PERRL, EOMI Pupils: Present: normal accommodation - ENT ENT exam: Present: normal exam, normal orophraynx, mucous membranes moist - Neck Neck exam: Present: normal inspection - Respiratory Respiratory exam: Present: normal lung sounds bilaterally. Absent: respiratory distress - Cardiovascular Cardiovascular Exam: Present: regular rate, normal rhythm. Absent: systolic murmur, diastolic murmur, rubs, gallop - GI/Abdominal GI/Abdominal exam: Present: soft, normal bowel sounds - Extremities Exam Extremities exam: Present: normal inspection - Back Exam Back exam: Present: normal inspection - Neurological Exam Neurological exam: Present: alert, oriented X3 - Psychiatric Psychiatric exam: Present: normal affect, normal mood - Skin Skin exam: Present: warm, dry, intact, erythema (CELLULITIS NOTED TO MEDIAL THIGH MID REGION. INDURATED NOTED. NO ABSCESS. NO LYMPHANGITIS. NO INGUNIAL LAD NOTED. ). Absent: rash ED Course Vital Signs 07/10/18 09:39 Temperature 98.3 F Pulse Rate 112 H Respiratory 16 Rate Blood Pressure 152/99 [Left] O2 Sat by Pulse 96 Oximetry Critical care attestation.: If time is entered above; I have spent that time in minutes in the direct care of this critically ill patient, excluding procedure time. ED Disposition Clinical Impression: Cellulitis, leg Disposition: DC-01 TO HOME OR SELFCARE Is pt being admited?: No Does the pt Need Aspirin: No Condition: Stable Instructions: Cellulitis (ED) Referrals: [facility] [Provider Group] - 2-3 Days (WOUND RECHECK IN 2-3 DAYS )
== END 2018-07-10 11:55 | disposition home or self-care (01) ==
LOC: ED 09:13
DX: L03.115 Cellulitis of right lower limb (principal); M79.18 Myalgia, other site
CPT/HCPCS: 99282